=== PATIENT | female | born 1945 | race Caucasian/White ===

== ENCOUNTER → 2017-11-20 14:41 | Outpatient (CLI) | payer MEDICARE, OTHER, SELFPAY ==
[2017-11-20 16:05] LABS: Alanine Aminotransferase 34 IU/L (9-52); Albumin 4.2 g/dL (3.5-5.0); Albumin Globulin Ratio 1.5 (1.0-2.8); Alkaline Phosphatase 73 U/L (38-126); Aspartate Aminotransferase 41 IU/L (14-36); BUN Creatinine Ratio 27.1 (6-22); Bilirubin Total 0.7 mg/dL (0.2-1.3); Blood Urea Nitrogen 19 mg/dL (7-17); Calcium 9.5 mg/dL (8.4-10.2); Carbon Dioxide 32 mmol/L (22-32); Chloride 103 mmol/L (98-107); Cholesterol 225 mg/dL (140-199); Estimated Glomerular Filt Rate > 60.0 mL/min (>60); Globulin 2.8 g/dL (1.7-4.1); Glucose 102 mg/dL (80-110); HDL Cholesterol 69 mg/dL (40-60); HEMOLYSIS < 15 (0-50); LDL Cholesterol Calculated 103 mg/dL (<100); Potassium 4.8 mmol/L (3.4-5.1); Sodium 145 mmol/L (137-145); Triglycerides 266 mg/dL (35-150)
== END ==
PROVIDERS: Visit Provider Internal Medicine
DX: E78.5 Hyperlipidemia, unspecified (principal); Z00.00 Encounter for general adult medical examination without abnormal findings
CPT/HCPCS: 36415; 80053; 80061

== ENCOUNTER → 2017-12-08 13:41 | Outpatient (CLI) | payer MEDICARE, OTHER, SELFPAY | PROVIDERS: Family Provider Family Medicine; PCP Family Medicine; Visit Provider Internal Medicine | DX: M85.851 Other specified disorders of bone density and structure, right thigh (principal); Z78.0 Asymptomatic menopausal state; E28.39 Other primary ovarian failure; Z90.722 Acquired absence of ovaries, bilateral; Z82.62 Family history of osteoporosis | CPT/HCPCS: 77080 ==

== ENCOUNTER → 2018-01-06 09:12 | Outpatient (CLI) | payer MEDICARE, OTHER, SELFPAY ==
[2018-01-06 10:38] LABS: Cholesterol 244 mg/dL (140-199); HDL Cholesterol 69 mg/dL (40-60); LDL Cholesterol Calculated 160 mg/dL (<100); Triglycerides 75 mg/dL (35-150)
[2018-01-06 11:29] LABS: Thyroid Stimulating Hormone 5.83 uIU/mL (0.47-4.68)
== END ==
PROVIDERS: PCP Physician Assistant; Visit Provider Physician Assistant
DX: E78.5 Hyperlipidemia, unspecified (principal); Z83.438 Family history of other disorder of lipoprotein metabolism and other lipidemia
CPT/HCPCS: 36415; 80061; 84443

== ENCOUNTER → 2018-02-17 08:59 | Outpatient (CLI) | payer MEDICARE, OTHER, SELFPAY ==
[2018-02-17 10:16] LABS: Cholesterol 223 mg/dL (140-199); HDL Cholesterol 68 mg/dL (40-60); LDL Cholesterol Calculated 138 mg/dL (<100); Triglycerides 85 mg/dL (35-150)
[2018-02-17 10:40] LABS: Thyroid Stimulating Hormone 1.46 uIU/mL (0.47-4.68)
== END ==
PROVIDERS: PCP Physician Assistant; Visit Provider Physician Assistant
DX: E03.9 Hypothyroidism, unspecified (principal); E78.5 Hyperlipidemia, unspecified; Z51.81 Encounter for therapeutic drug level monitoring
CPT/HCPCS: 36415; 80061; 84443

== ENCOUNTER 2018-03-16 08:33 | Day surgery (SDC) | payer MEDICARE, OTHER, SELFPAY ==
[2018-03-16 08:55] VITALS: BP 144/88; PULSE 86; RESP 18; TEMP 36.6; O2SAT 96; BMI 22.6
[2018-03-16] MEDS: SODIUM CHLORIDE 0.9% 1,000 ML 200 ML IV (09:18)
--- NOTE | 2018-03-16 10:26 | PM.HP.1 ---
History of Present Illness Date Patient Seen: 03/16/18 Time Patient Seen: 10:26 Chief complaint: [id number] SCREENING COLONOSCOPY Narrative: Patient is a woman who had a sister from colon cancer. Her last exam was 5 years ago he. She is here for a colonoscopy for screening reasons in a high risk group. History of diverticulitis Patient History Medical History Anxiety (Chronic ~1959) Cataract (Chronic 2011) Colitis (Chronic 1966) IBS (irritable bowel syndrome) (Chronic 1969) Migraines (Chronic ~1989) Osteopenia (Chronic 2007) Rosacea (Chronic 2013) Acne (Resolved 1960) Chicken pox (Resolved 1949) Fractures (Resolved 2011) Measles (Resolved 1951) Mumps (Resolved 1950) Recurrent sinusitis (Resolved ~1979) Vertigo (Resolved 2011) Surgical History History of gynecologic surgery (Resolved 1972) History of oophorectomy (Resolved 1980) Status post cholecystectomy (Resolved 1999) Status post dilation and curettage (Resolved 1970) Status post hysterectomy (Resolved 1980) Family & Social History Family History: Reviewed 03/16/18 by Stanislaw Shaikh MD Social History: household members none Tobacco & Substance use: Smoking Status Former smoker alcohol intake current Meds Home Medications Medication Instructions Recorded Confirmed Type estradiol [Vivelle-Dot] 0.1 mg TOPICAL QWEEK #8 patch 07/22/11 03/16/18 History MULTIVITAMIN 1 cap PO Q DAY #0 10/16/11 03/16/18 History diazepam [Valium] 5 mg PO TIDP #30 tab 04/21/17 03/16/18 Rx AZO OTC See Label Instructions .ROUTE 12/30/17 03/16/18 History .COMPLEX Vitamin D3 2,000 IU See Label Instructions .ROUTE 12/30/17 03/16/18 History .COMPLEX levothyroxine 50 mcg tablet 50 mcg PO DAILY #90 tab 02/15/18 03/16/18 Rx Allergies Allergy/AdvReac Type Severity Reaction Status Date / Time CIPROFLOXACIN Allergy Mild BLEEDING Uncoded 03/16/18 09:14 ULCERATIONS ON SKIN CODEINE Allergy Mild ANXIETY Uncoded 03/16/18 09:14 EGGS Allergy Mild STOMACH Uncoded 03/16/18 09:14 PAIN AND DIARRHEA ERYTHROMYCIN Allergy Mild GI UPSET Uncoded 03/16/18 09:14 From CEFTIN Allergy Mild HEADACHE/MOUTH Uncoded 03/16/18 09:14 SORES From ZITHROMAX Allergy Mild DIARRHEA Uncoded 03/16/18 09:14 Prochlorperazine Allergy Mild Patient Uncoded 03/16/18 09:14 does not remember Promethazine Allergy Mild SPASMS Uncoded 03/16/18 09:14 LATEX AdvReac Mild LOCAL RASH Uncoded 03/16/18 09:14 Review of Systems Review of Systems All systems reviewed & are unremarkable except as noted in HPI and below Exam Vital Signs (past 8 hours): - 03/16/18 08:55 Temperature 97.8 F Pulse Rate 86 Respiratory Rate 18 Blood Pressure 144/88 H Pulse Oximetry 96 Oxygen Delivery Method Room Air Narrative Exam Narrative: Operative no apparent distress. Lungs are clear to auscultation. Heart regular rate and rhythm without murmur gallop. Abdomen is soft nontender without masses. No enlarged liver or spleen. Patient is alert and oriented x3. Assessment & Plan Plan: Assessment/Plan Narrative: Patient for screening colonoscopy. Last exam 5 years ago. Sister with colon cancer. I have discussed the procedure and the rationale with the patient including risks of bleeding, perforation which would necessitate a major operation, failure to find remove all lesions and the potential to tattoo. They appeared to understand and wished to proceed.
--- NOTE | 2018-03-16 10:30 | PM.PREOP ---
Pre-operative Note Interval Note History & Physical reviewed/Exam performed by Physician: Yes Changes to H&P: No ASA Class (for procedural sedation): I
[2018-03-16] MEDS: fentaNYL 250 MCG/5 ML INJ IV (10:46)
[2018-03-16] MEDS: MIDAZOLAM 5 MG/5 ML VIAL IV (10:47)
--- NOTE | 2018-03-16 10:59 | PM.OP.ENDO ---
Operative Date/Time/Diagnoses Date of procedure: 03/16/18 Time of procedure: 11:00 Pre-op diagnosis: Screening exam. Last exam 5 years ago. Sister with colon cancer. Post-op diagnosis: same (Sigmoid diverticulosis. Scarring on old hemorrhoids. No active hemorrhoidal disease.) Procedure & Clinicians Study performed: Colonoscopy Same procedure as scheduled: Yes Indications: Screening Surgeon: Stanislaw Shaikh Procedure Notes SCOAP/Timeout: Performed Procedure in detail: The patient was placed in the left lateral decubitus position and underwent IV sedation directed by the surgeon consisting of fentanyl and Versed. Digital exam was unremarkable. The scope was inserted and advanced through the rectum into the sigmoid, descending, transverse, and ascending colon. Sigmoid diverticulosis was noted. A stiffener was inserted and we made our way into the cecum. The cecum was reached identified by the ileocecal valve and the appendiceal opening. The scope was gradually brought out. No Polyps were found. The scope ultimately was retroflexed in the rectum. The appearance was remarkable for scarring on old hemorrhoids. There did not appear to be any active inflammation of this area. The scope was removed and the patient tolerated the procedure well. Prep was adequate. Scope withdrawal time: 7.75 min Sedation minutes: 21 Findings: diverticulosis (Sigmoid) Specimen(s): none sent Complications: none Recommendations: Colonscopy in 5 years Follow up: as needed Disposition: PACU
[2018-03-16 11:02] VITALS: BP 111/60; PULSE 64; RESP 15; TEMP 36.2; O2SAT 98
[2018-03-16 11:07] VITALS: BP 107/59; PULSE 60; RESP 13; O2SAT 98
[2018-03-16 11:12] VITALS: BP 110/63; PULSE 75; RESP 18; O2SAT 99
[2018-03-16 11:14] VITALS: BP 113/75; PULSE 70; RESP 16; O2SAT 99
[2018-03-16 11:58] VITALS: BP 110/72; PULSE 69; RESP 16; TEMP 36.1; O2SAT 100
== END 2018-03-16 11:55 | disposition home or self-care (01) ==
PROVIDERS: Family Provider Family Medicine; PCP Physician Assistant; Visit Provider Specialist
PROC: 0DJD8ZZ Inspection of Lower Intestinal Tract, Via Natural or Artificial Opening Endoscopic (ICD-10-PCS; CPT 45378; principal; 2018-03-16 09:45)
DX: Z12.11 Encounter for screening for malignant neoplasm of colon (principal); Z80.0 Family history of malignant neoplasm of digestive organs; F41.9 Anxiety disorder, unspecified; Z87.891 Personal history of nicotine dependence; K57.30 Diverticulosis of large intestine without perforation or abscess without bleeding
CPT/HCPCS: G0105; 99152; J2250; J3010

== ENCOUNTER → 2018-12-21 10:22 | Outpatient (CLI) | payer MEDICARE, OTHER, SELFPAY ==
[2018-12-21 12:05] LABS: Alanine Aminotransferase 23 IU/L (9-52); Albumin 4.3 g/dL (3.5-5.0); Albumin Globulin Ratio 1.3 (1.0-2.8); Alkaline Phosphatase 89 U/L (38-126); Aspartate Aminotransferase 35 IU/L (14-36); BUN Creatinine Ratio 22.9 (6-22); Blood Urea Nitrogen 16 mg/dL (7-17); Calcium 9.2 mg/dL (8.4-10.2); Carbon Dioxide 28 mmol/L (22-32); Chloride 102 mmol/L (98-107); Cholesterol 250 mg/dL (140-199); Estimated Glomerular Filt Rate > 60.0 mL/min (>60); Globulin 3.2 g/dL (1.7-4.1); Glucose 108 mg/dL (80-110); HDL Cholesterol 62 mg/dL (40-60); HEMOLYSIS < 15 (0-50); LDL Cholesterol Calculated 164 mg/dL (<100); Potassium 3.4 mmol/L (3.4-5.1); Sodium 138 mmol/L (137-145); Total Protein 7.5 g/dL (6.3-8.2); Triglycerides 121 mg/dL (35-150)
[2018-12-21 12:32] LABS: Thyroid Stimulating Hormone 1.49 uIU/mL (0.47-4.68)
== END ==
PROVIDERS: PCP Physician Assistant; Visit Provider Physician Assistant
DX: E03.9 Hypothyroidism, unspecified (principal); E78.5 Hyperlipidemia, unspecified
CPT/HCPCS: 36415; 80053; 80061; 84443

== ENCOUNTER → 2019-03-29 08:51 | Outpatient (CLI) | payer MEDICARE, SELFPAY ==
[2019-03-29 09:59] LABS: Cholesterol 220 mg/dL (140-199); HDL Cholesterol 64 mg/dL (40-60); LDL Cholesterol Calculated 141 mg/dL (<100); Triglycerides 73 mg/dL (35-150)
== END ==
PROVIDERS: PCP Student in an Organized Health Care Education/Training Program; Visit Provider Physician Assistant
DX: E78.2 Mixed hyperlipidemia (principal)
CPT/HCPCS: 36415; 80061

== ENCOUNTER → 2019-04-28 15:24 | Outpatient (CLI) | payer MEDICARE, SELFPAY | PROVIDERS: PCP Physician Assistant; Visit Provider Registered Nurse | DX: R35.0 Frequency of micturition (principal) | CPT/HCPCS: 87086 ==

== ENCOUNTER → 2019-09-12 15:34 | Outpatient (CLI) | payer MEDICARE, SELFPAY ==
--- NOTE | 2019-09-12 15:44 | DI.MG.S_ITS ---
BILATERAL DIGITAL SCREENING MAMMOGRAM 3D/2D WITH CAD: 09/12/2019 CLINICAL: Routine screening. Comparison is made to exams dated: 08/18/2018 mammogram, 06/19/2017 mammogram, and 05/26/2016 mammogram - [facility]. The tissue of both breasts is heterogeneously dense. This may lower the sensitivity of mammography. Current study was also evaluated with a Computer Aided Detection (CAD) system. No significant masses, calcifications, or other findings are seen in either breast. There has been no significant interval change. IMPRESSION: NEGATIVE There is no mammographic evidence of malignancy. A 1 year screening mammogram is recommended. This exam was interpreted at Station ID: [id number]. NOTE: For mammograms, a report in lay terms will be sent to the patient. Approximately 15% of breast malignancies will not be visualized mammographically. In the management of a palpable breast mass, a negative mammogram must not discourage biopsy of a clinically suspicious lesion. Electronically Signed By: Mumtaz mederos/morris:09/13/2019 08:37:26 letter sent: Normal Exam ACR BI-RADS Category 1: Negative [id number]
== END ==
PROVIDERS: PCP Student in an Organized Health Care Education/Training Program; Referring Provider Student in an Organized Health Care Education/Training Program; Visit Provider Student in an Organized Health Care Education/Training Program
DX: Z12.31 Encounter for screening mammogram for malignant neoplasm of breast (principal)
CPT/HCPCS: 77063; 77067

== ENCOUNTER → 2020-03-09 16:46 | Outpatient (CLI) | payer MEDICARE, SELFPAY ==
[2020-03-09 18:47] LABS: Vitamin D 25 Hydroxy (D3) 61.1 ng/mL (30.0-100.0)
== END ==
PROVIDERS: PCP Student in an Organized Health Care Education/Training Program; Referring Provider Student in an Organized Health Care Education/Training Program; Visit Provider Student in an Organized Health Care Education/Training Program
DX: E03.9 Hypothyroidism, unspecified (principal); M85.80 Other specified disorders of bone density and structure, unspecified site
CPT/HCPCS: 36415; 82306; 84443

== ENCOUNTER → 2020-04-10 13:09 | Outpatient (CLI) | payer MEDICARE, SELFPAY | PROVIDERS: PCP Student in an Organized Health Care Education/Training Program; Referring Provider Student in an Organized Health Care Education/Training Program; Visit Provider Student in an Organized Health Care Education/Training Program | DX: Z13.820 Encounter for screening for osteoporosis (principal); M81.0 Age-related osteoporosis without current pathological fracture; Z78.0 Asymptomatic menopausal state; E07.9 Disorder of thyroid, unspecified; Z90.722 Acquired absence of ovaries, bilateral; Z82.62 Family history of osteoporosis | CPT/HCPCS: 77080 ==

== ENCOUNTER 2020-08-03 13:41 | Emergency (ER) | payer MEDICARE, SELFPAY ==
[2020-08-03 13:47] VITALS: BP 165/79; PULSE 75; RESP 16; TEMP 36.5; O2SAT 97; BMI 21.7
--- NOTE | 2020-08-03 14:48 | ED.GENADULT ---
HPI - General Adult General Chief complaint: Dental/Oral Stated complaint: trouble swallowing Time Seen by Provider: 08/03/20 14:04 Source: patient Mode of arrival: Ambulatory Limitations: no limitations History of Present Illness HPI narrative: 75-year-old female here for evaluation of a couple days of trouble swallowing. She states that is also painful to swallow and also feels like things are getting stuck in her throat. She is having problems swallowing her Synthroid. No fevers. She is able to drink liquids without much difficulty. No dental pain. No ear pain. No chest pain. Has had issues with reflux in the past but not currently. She is not currently on any reflux medications. Related Data Home Medications Medication Instructions Recorded Confirmed MULTIVITAMIN 1 cap PO Q DAY #0 10/16/11 03/09/20 Vitamin D3 2,000 IU See Rx Instructions .ROUTE .COMPLEX 12/30/17 03/09/20 Previous Rx's Medication Instructions Recorded diazepam 2 mg tablet 2 mg PO DAILY #10 tab 08/03/19 levothyroxine 50 mcg tablet 50 mcg PO DAILY #90 tab 10/04/19 hydroxyzine HCl 25 mg tablet 25 mg PO BID PRN #30 tab 03/09/20 Allergies Allergy/AdvReac Type Severity Reaction Status Date / Time ciprofloxacin Allergy Severe bleeding Verified 03/09/20 16:03 ulceration on skin codeine Allergy Intermediate Anxiety Verified 03/09/20 16:03 azithromycin [From Zithromax] Allergy Mild Diarrhea Verified 03/09/20 16:03 cefuroxime [From Ceftin] Allergy Mild headaches Verified 03/09/20 16:03 mouth sores erythromycin base Allergy Mild GI upset Verified 03/09/20 16:03 latex Allergy Mild local rash Verified 03/09/20 16:03 prochlorperazine Allergy Mild pt does Verified 03/09/20 16:03 not remember promethazine Allergy Mild spasms Verified 03/09/20 16:03 EGGS Allergy Mild STOMACH Uncoded 03/09/20 16:03 PAIN AND DIARRHEA Review of Systems Constitutional Constitutional: Denies fever(s) and Denies headache(s) Eyes Eyes: Reports system reviewed and no additional complaints, except as documented ENT Ears, Nose, Mouth, and Throat: Denies headache(s), Denies sinus pain and Reports sore throat Cardiovascular Cardiovascular: Reports system reviewed and no additional complaints, except as documented Respiratory Respiratory: Reports system reviewed and no additional complaints, except as documented Gastrointestinal Gastrointestinal: Reports system reviewed and no additional complaints, except as documented, Denies nausea and Denies vomiting Genitourinary Genitourinary: Reports system reviewed and no additional complaints, except as documented Musculoskeletal Musculoskeletal: Reports system reviewed and no additional complaints, except as documented Integumentary/Breasts Skin/Breast: Reports system reviewed and no additional complaints, except as documented Neurologic Neurologic: Reports system reviewed and no additional complaints, except as documented and Denies headache(s) Hematologic/Lymphatic Hematologic/Lymphatic: Reports system reviewed and no additional complaints, except as documented Allergic/Immunologic Allergic/Immunologic: Reports system reviewed and no additional complaints, except as documented Patient History Medical History Acne (1960) Anxiety (~1959) Cataract (2011) Chicken pox (1949) Colitis (1966) Family history of malignant neoplasm of colon (08/29/13) Fractures (2011) IBS (irritable bowel syndrome) (1969) Measles (1951) Migraines (~1989) Mumps (1950) Osteopenia (2007) Recurrent sinusitis (~1979) Rosacea (2013) Vertigo (2011) Surgical History History of gynecologic surgery (1972) History of oophorectomy (1980) Status post cholecystectomy (1999) Status post dilation and curettage (1970) Status post hysterectomy (1980) Family History Father Thyroid disease Coronary artery disease Heart disease Hypertension Diabetes mellitus High cholesterol [place] (myocardial infarction) Mother Heart disease Hypertension Osteoporosis High cholesterol Sister Colorectal cancer Osteoporosis Diabetes mellitus Social History household members: none Smoking Status: Former smoker Tobacco: How many years used: 1 second hand exposure: No alcohol intake: current (one glass of wine or a little bit of whiskey with water 3 times a week maybe.) substance use type: does not use Smoking Status: Former smoker Exam Initial Vital Signs Initial Vital Signs: Vital Signs Temperature 97.7 F 08/03/20 13:47 Pulse Rate 75 08/03/20 13:47 Respiratory Rate 16 08/03/20 13:47 Blood Pressure 165/79 H 06/04/21 13:47 Pulse Oximetry 97 08/03/20 13:47 Const General: cooperative and comfortable Limitations: mental status not altered HENMT Head: normal to inspection and normocephalic Face and sinus: normal facial exam Mouth: oral mucosae normal Teeth and gingiva: dentition normal Throat: posterior oropharynx normal, uvula midline and no uvular edema Neck Lymphatic: No lymphadenopathy Resp Effort & Inspection: normal respiratory effort Auscultation: clear to auscultation bilaterally Cardio Rate: regular rate Rhythm: regular rhythm GI Inspection: non-distended Palpation: soft Skin Lesions: no lesions Rashes: no rashes Neuro General: patient alert, patient awake and patient oriented x3 Cognition: normal cognition Extrem General: capillary refill normal Psych Appearance: grossly normal and well kempt Course Orders Ordered: ED Orders 08/03/20 14:48 CT soft tissue neck w con Stat 08/03/20 15:03 Basic Metabolic Panel Stat Complete Blood Count AUTO DIFF Stat Vital Signs Vital signs: Vital Signs - 8 hr 08/03/20 13:47 08/03/20 15:32 08/03/20 15:33 Temperature 97.7 F Pulse Rate 75 65 63 Respiratory Rate 16 Blood Pressure 165/79 H 186/91 H Pulse Oximetry 97 99 99 08/03/20 15:54 Temperature Pulse Rate 67 Respiratory Rate Blood Pressure 177/82 H Pulse Oximetry 99 Medical Decision Making Lab Data Lab results reviewed: Yes I reviewed the patient's lab results. Result diagrams: 08/03/20 15:03 08/03/20 15:03 Labs: Lab Results 08/03/20 08/03/20 Range/Units 15:03 15:03 WBC 5.8 (4.5-11.0) X10^3/uL RBC 4.85 (4.0-5.2) X10^6/uL Hgb 15.2 (12.0-16.0) g/dL Hct 45.1 (36-46) % MCV 93.2 (80-100) fL MCH 31.4 (26-34) PG MCHC 33.7 (30-36) % RDW 13.4 (11.6-14.8) % Plt Count 261 (150-400) X10^3/uL Neut % (Auto) 70.3 (50-75) % Lymph % (Auto) 18.4 L (25-40) % [place] % (Auto) 7.8 (3-14) % Eos % (Auto) 2.8 (2-4) % Baso % (Auto) 0.7 (0-2) % Neut # (Auto) 4100 (3255-8344) /uL Lymph # (Auto) 1100 (9331-2195) /uL [place] # (Auto) 500 (0-900) /uL Eos # (Auto) 200 (0-450) /uL Baso # (Auto) 0 (0-100) /uL Sodium 139 (137-145) mmol/L Potassium 4.4 (3.4-5.1) mmol/L Chloride 104 (98-107) mmol/L Carbon Dioxide 28 (22-32) mmol/L BUN 14 (7-17) mg/dL Creatinine 0.57 (0.52-1.04) mg/dL Estimated GFR > 60.0 (>60) mL/min BUN/Creatinine Ratio 24.6 H (6-22) Glucose 107 (80-110) mg/dL Calcium 9.7 (8.4-10.2) mg/dL Imaging Data CT soft tissue of neck: Radiologist's Impression: [address] Scan ReportSigned Patient: Kathy Tanner CMR#: [id number]: 8Acct:[id number]/Sex: 75 / FDate of Service: 08/03/20Loc: EDAccession Number: [id number] Procedure: CT soft tissue neck w con Ordering Provider: Robert Blake D.O. PROCEDURE: CT SOFT TISSUE NECK W CON INDICATIONS: Uvular mass. TECHNIQUE: After the administration of intravenous contrast, 3.0 mm axial sections acquired from the sella to the aortic arch. Additional oblique axial 3.0 mm sections acquired through the pharynx. 3 mm thick coronal and sagittal reformats were generated. For radiation dose reduction, the following was used: automated exposure control. COMPARISON: None. FINDINGS: Image quality: Degraded by beam hardening artifact related to metallic dental hardware. Lymph nodes: No enlarged lymph nodes seen throughout the neck. Vessels: Visualized vasculature appears patent. Neck spaces: The oropharynx, nasopharynx, and pharynx demonstrate no mucosal lesions. The uvula is not well visualized due to beam hardening artifact related to metallic dental hardware and cannot be evaluated. The vocal cords, false vocal cords, pyriform sinuses, epiglottis, vallecula, and tongue base all appear normal. Extramucosal spaces appear unremarkable. Glands: The parotid and submandibular glands appear normal. Thyroid gland is normal. Miscellaneous: Visualized brain and orbits appear normal. Lung apices appear clear. Superficial soft tissues appear normal. Bones: No suspicious bony lesions. Visualized sinuses and mastoids appear unremarkable. IMPRESSION: 1. Image quality degraded by beam hardening artifact related to metallic dental hardware. 2. Uvula is poorly visualized due to artifact related to metallic dental hardware and cannot be evaluated. 3. No mucosal based masses in the well visualized portions of the neck. 4. No lymphadenopathy based on size criteria. Dictated by: Ashley Muñiz MD, PhD on 08/03/2020 at 16:17 Approved by: Ashley Muñiz MD, PhD on 08/03/2020 at 16:25 [facility] Narrative Medical decision making narrative: Patient is afebrile. She does not have any uvula edema noted on my exam. The CT scan of the neck shows no blockages or masses or narrowing. She is able to tolerate liquids. Informed her to stick to a liquid diet for the next couple days and advance her diet as tolerated starting with small bites of food. Informed her that if her symptoms have not improved by Thursday that she should contact her primary doctor for a follow-up to discuss the indication for an endoscopy. She was given strict return precautions. She expressed understanding and agreement. Discharge Plan Departure Patient Disposition: Home Clinical Impression: Dysphagia Instructions: DI for Oropharyngeal Dysphagia Activity Restrictions/Additional Instructions: I do recommend that you stick with a liquid diet for the next 24-48 hours and then after that increase your diet as tolerated making sure that your eating small bites of food. If your symptoms have not improved by Thursday recommend you contact your primary doctor to discuss the indications for referral to have a endoscopy. If your symptoms worsen please return to the emergency department for further evaluation. Prescriptions: No Action Vitamin D3 2,000 IU See Rx Instructions .ROUTE .COMPLEX RF: 0 MULTIVITAMIN 1 cap PO Q DAY Qty: 0 RF: 0 levothyroxine 50 mcg tablet 50 mcg PO DAILY Qty: 90 RF: 3 diazepam 2 mg tablet 2 mg PO DAILY Qty: 10 RF: 5 hydroxyzine HCl 25 mg tablet 25 mg PO BID PRN (Reason: anxiety) Qty: 30 RF: 0 Referrals: Jin Langley MD [Primary Care Provider] -
[2020-08-03 15:23] LABS: Add Manual Diff / Slide Review NO; Basophils Absolute Auto 0 /uL (0-100); Basophils Percent Auto 0.7 % (0-2); Eosinophils Absolute Auto 200 /uL (0-450); Eosinophils Percent Auto 2.8 % (2-4); Hematocrit 45.1 % (36-46); Hemoglobin 15.2 g/dL (12.0-16.0); Lymphocytes Absolute Auto 1100 /uL (1100-4500); Lymphocytes Percent Auto 18.4 % (25-40); Mean Corpuscular HGB Conc 33.7 % (30-36); Mean Corpuscular Hemoglobin 31.4 PG (26-34); Mean Corpuscular Volume 93.2 fL (80-100); Monocytes Absolute Auto 500 /uL (0-900); Monocytes Percent Auto 7.8 % (3-14); Neutrophils Absolute Auto 4100 /uL (1500-7000); Neutrophils Percent Auto 70.3 % (50-75); Platelet Count 261 X10^3/uL (150-400); Red Blood Cell Count 4.85 X10^6/uL (4.0-5.2); Red Cell Distribution Width 13.4 % (11.6-14.8); White Blood Cell Count 5.8 X10^3/uL (4.5-11.0)
[2020-08-03 15:32] VITALS: PULSE 65; O2SAT 99
[2020-08-03 15:32] LABS: BUN Creatinine Ratio 24.6 (6-22); Blood Urea Nitrogen 14 mg/dL (7-17); Calcium 9.7 mg/dL (8.4-10.2); Carbon Dioxide 28 mmol/L (22-32); Chloride 104 mmol/L (98-107); Estimated Glomerular Filt Rate > 60.0 mL/min (>60); Glucose 107 mg/dL (80-110); HEMOLYSIS 62 (0-50); Potassium 4.4 mmol/L (3.4-5.1); Sodium 139 mmol/L (137-145)
[2020-08-03 15:33] VITALS: BP 186/91; PULSE 63; O2SAT 99
[2020-08-03 15:54] VITALS: BP 177/82; PULSE 67; O2SAT 99
[2020-08-03 16:41] VITALS: BP 150/75; PULSE 63; RESP 16; O2SAT 97
== END 2020-08-03 16:50 | disposition home or self-care (01) ==
PROVIDERS: Emergency Provider Emergency Medicine; PCP Student in an Organized Health Care Education/Training Program
DX: R13.10 Dysphagia, unspecified (principal)
CPT/HCPCS: 36415; 70491; 80048; 85025; 99284; Q9967

== ENCOUNTER → 2020-10-11 11:09 | Outpatient (CLI) | payer MEDICARE, SELFPAY ==
[2020-10-11 11:19] LABS: RBC Urine None Seen (0-5/HPF)
[2020-10-11 12:07] LABS: Appearance Urine UA CLEAR; Bilirubin Urine UA NEGATIVE (NEGATIVE); Color Urine UA YELLOW; Glucose Urine UA NEGATIVE (Negative); Ketones Urine UA NEGATIVE (NEGATIVE); Leukocyte Esterase Urine UA TRACE (NEGATIVE); Nitrite Urine UA NEGATIVE (Negative); Occult Blood Urine UA NEGATIVE (Negative); Protein Urine UA NEGATIVE (Negative); Urobilinogen Urine UA 0.2 E.U./dL (0.2)
[2020-10-11 12:12] LABS: pH Urine UA 5.5 (4.5-8.0)
[2020-10-11 12:25] LABS: Bacteria Urine Occasional (0-1); Culture Indicated Urine Specimen Cultured; Mucus Urine 1+ (Negative); Squamous Epithelial Cell Urine 0-1 /HPF (0-5/HPF); WBC Urine 0-1/HPF (0-5/HPF)
== END ==
PROVIDERS: PCP Student in an Organized Health Care Education/Training Program; Referring Provider Student in an Organized Health Care Education/Training Program; Visit Provider Student in an Organized Health Care Education/Training Program
DX: R39.15 Urgency of urination (principal)
CPT/HCPCS: 81001; 87086

== ENCOUNTER 2020-11-28 13:00 | Outpatient (RCR) | payer MEDICARE, SELFPAY ==
--- NOTE | 2020-11-06 16:00 | PT.OIE ---
Current Diagnoses Urgency of urination (11/06/20) Past Medical History (Last Reviewed 08/03/20 @ 15:42 by Robert Blake DO) Acne (1960) Anxiety (~1960) Cataract (2011) Chicken pox (1949) Colitis (1966) Family history of malignant neoplasm of colon (08/29/13) Fractures (2011) History of gynecologic surgery (1972) History of oophorectomy (1980) IBS (irritable bowel syndrome) (1969) Measles (1951) Migraines (~1989) Mumps (1950) Osteopenia (2007) Recurrent sinusitis (~1979) Rosacea (2013) Vertigo (2011) Past Surgical History (Last Reviewed 03/16/18 @ 10:27 by Stanislaw Shaikh MD) History of gynecologic surgery (1972) History of oophorectomy (1980) Status post cholecystectomy (1999) Status post dilation and curettage (1970) Status post hysterectomy (1980) Visit Care Team Role Provider Type Jin Langley MD Attending Provider Physician Primary Care Provider Referring Provider Specialty: Internal Medicine Address: [address] [place] [address], [address], [facility] Email: [email or web address] Physical Therapy Initial Evaluation PT-OP-A Visit Information Start: 11/02/20 13:02 Freq: Status: Active Protocol: Document 11/06/20 14:30 AMB (Rec: 11/07/20 10:51 AMB [email or web address]) Out-Patient Physical Therapy Visit Information Visit Information Visit Type Initial Evaluation Visit Start Time 14:30 Visit Stop Time 15:15 Total Visit Minutes 45 Visit Number 1 PT-OP-B Current Condition Start: 11/02/20 13:02 Freq: Status: Active Protocol: Document 11/06/20 14:30 AMB (Rec: 11/06/20 15:47 AMB [id number]) Current Condition History of Current Condition Onset Date chronic Current Complaints Urge incontinence History of Current Condition Urgency worse over 15 years, 2 -3x/month has a large leak, multiple times per day small leaks, urgency. all vaginal, denies extended pushing. Endometriosis history, complete hysterectomy took estrogen for years afterward since they did an oophorectomy too. Denies chronic constipation, denies chronic cough. Treatment Goals Patient/Caregiver Goals Wear fewer pads reduce leaks Prior Functional Status Baseline Function- ADL's Independent Baseline Function- Mobility Independent Current Functional Impairments (Reported) Functional Limitations- ADL's Leaking with triggers, standing up from sitting, lifting Personal Factors Other Personal Factors That May Effect Anxiety, hypothyroid, back Therapy/Recovery pain PT-OP-C Subjective Start: 11/02/20 13:02 Freq: Status: Active Protocol: Document 11/06/20 14:30 AMB (Rec: 11/07/20 11:15 AMB [email or web address]) Patient Questionnaires Pelvic Pain and Urgency/Frequency Patient Symptom Scale Pelvic Pain Score 7 PT-OP-I Pelvic Floor Start: 11/02/20 13:02 Freq: Status: Active Protocol: Document 11/06/20 14:30 AMB (Rec: 11/07/20 11:15 AMB [email or web address]) Pelvic Floor Assessment Urine Pelvic Floor Surgery Yes: complete hysterectomy and oophorectomy Urinary Symptoms Urge Sensation Leakage Size Medium Leakage Cause Lifting,Urge Leaks Per Day 3 Voiding Frequency 1-2 hours Nocturia 2 Pads Used In 24 Hours 3 Urine Pad Type Maxi Pad Prolapse Cystocele Grade 1 Perineal Descent Resting Absent Bearing Absent Contraction Ability Voluntary Contraction Weak Voluntary Relaxation Moderate Manual Muscle Testing Left 3 Manual Muscle Testing Right 3 Manual Muscle Testing Anterior 2 Manual Muscle Testing Posterior 3 Muscle Endurance (Seconds) 5 Number of Quick Contractions In 10 4 Seconds PT-OP-T Assessment and Plan Start: 11/02/20 13:02 Freq: Status: Active Protocol: Document 11/06/20 14:30 AMB (Rec: 11/07/20 11:15 AMB [email or web address]) Physical Therapy Assessment Rehab Potential Rehabilitation Potential Good Evaluation Complexity Number of Personal Factors/Comorbidities 1-2 Number of Body Systems Impaired 1-2 Clinical Presentation at Evaluation Stable Impairments Impairments Functional Activities,Strength Goals Two Impairment Pelvic floor strength Short Term Goal (STG) Kathy will improve her pelvic floor strengh so that she can contract her pelvic floor for 10 seconds in standing. STG Duration 4 weeks Custodial Goal (LTG) Kathy will contract her pelvic floor while squatting to [employer] 10#. LTG Duration 8 weeks One Impairment Urge incontinence Short Term Goal (STG) Kathy will use urge reduction strategies so that she can stand up after sitting for an hour without leaking. STG Duration 4 weeks Custodial Goal (LTG) Kathy will reduce her nocturia to 1x/night or less. LTG Duration 8 weeks Assessment Summary Assessment Kathy attends physical therapy with progressively worsening urge incontinence and mild stress urinary incontinence. She was able to contract her pelvic floor with moderate strength, and was educated in urge reduction strategies. She will benefit from PT to progress her pelvic floor strength and further educate her in urgency/frequency reduction. Physical Therapy Plan Frequency and Duration Frequency of Treatment 1x/Week Duration of Treatment 8 weeks Plan of Care Start Date 11/06/20 Plan of Care End Date 01/01/21 Therapeutic Interventions Therapeutic Interventions Manual Therapy,Neuromuscular Re-education,Self-Care/Home Management,Therapeutic Activities,Therapeutic Exercises Modalities Biofeedback,Electric Stimulation Next Visit Focus/Plan Next Note Type Treatment Note Next Visit Plan sEMG
--- NOTE | 2020-11-06 16:00 | PT.OPPOC ---
Physical, Occupational & Speech Therapy At [facility] Current Diagnoses Urgency of urination (11/06/20) Visit Care Team Role Provider Type Jin Langley MD Attending Provider Physician Primary Care Provider Referring Provider Specialty: Internal Medicine Address: [address] [place] [address], [address], [address] Email: [email or web address] Plan Of Care PT-OP-T Assessment and Plan Start: 11/02/20 13:02 Freq: Status: Active Protocol: Document 11/06/20 14:30 AMB (Rec: 11/07/20 11:15 AMB [email or web address]) Physical Therapy Assessment Rehab Potential Rehabilitation Potential Good Evaluation Complexity Number of Personal Factors/Comorbidities 1-2 Number of Body Systems Impaired 1-2 Clinical Presentation at Evaluation Stable Impairments Impairments Functional Activities,Strength Goals Two Impairment Pelvic floor strength Short Term Goal (STG) Kathy will improve her pelvic floor strengh so that she can contract her pelvic floor for 10 seconds in standing. STG Duration 4 weeks Filter Tank Tender Goal (LTG) Kathy will contract her pelvic floor while squatting to picking tech 10#. LTG Duration 8 weeks One Impairment Urge incontinence Short Term Goal (STG) Kathy will use urge reduction strategies so that she can stand up after sitting for an hour without leaking. STG Duration 4 weeks Filter Tank Tender Goal (LTG) Kathy will reduce her nocturia to 1x/night or less. LTG Duration 8 weeks Assessment Summary Assessment Kathy attends physical therapy with progressively worsening urge incontinence and mild stress urinary incontinence. She was able to contract her pelvic floor with moderate strength, and was educated in urge reduction strategies. She will benefit from PT to progress her pelvic floor strength and further educate her in urgency/frequency reduction. Physical Therapy Plan Frequency and Duration Frequency of Treatment 1x/Week Duration of Treatment 8 weeks Plan of Care Start Date 11/06/20 Plan of Care End Date 01/01/21 Therapeutic Interventions Therapeutic Interventions Manual Therapy,Neuromuscular Re-education,Self-Care/Home Management,Therapeutic Activities,Therapeutic Exercises Modalities Biofeedback,Electric Stimulation Next Visit Focus/Plan Next Note Type Treatment Note Next Visit Plan sEMG Plan of Care Dates Plan of Care Start Date 11/06/20 Plan of Care End Date 01/01/21 Electronically Signed by: Belinda Elizondo, PT 11/07/20 2280 Please Sign and Return: I have reviewed this Plan of Care and certify that the skilled therapy services above are required to meet the patient?s needs. Physician Signature Date Printed Name and Credentials Clinical Instructor Signature Printed Name and Credentials
--- NOTE | 2020-11-13 14:26 | PT.OTN ---
Current Diagnoses Urgency of urination (11/13/20) Physical Therapy Treatment Note PT-OP-A Visit Information Start: 11/02/20 13:02 Freq: Status: Active Protocol: Document 11/13/20 13:45 AMB (Rec: 11/13/20 14:12 AMB [id number]) Out-Patient Physical Therapy Visit Information Visit Information Visit Type Treatment Note Visit Start Time 13:45 Visit Stop Time 14:30 Total Visit Minutes 45 Visit Number 2 PT-OP-B Current Condition Start: 11/02/20 13:02 Freq: Status: Active Protocol: Document 11/06/20 14:30 AMB (Rec: 11/06/20 15:47 AMB [id number]) Current Condition History of Current Condition Onset Date chronic Current Complaints Urge incontinence History of Current Condition Urgency worse over 15 years, 2 -3x/month has a large leak, multiple times per day small leaks, urgency. all vaginal, denies extended pushing. Endometriosis history, complete hysterectomy took estrogen for years afterward since they did an oophorectomy too. Denies chronic constipation, denies chronic cough. Treatment Goals Patient/Caregiver Goals Wear fewer pads reduce leaks Prior Functional Status Baseline Function- ADL's Independent Baseline Function- Mobility Independent Current Functional Impairments (Reported) Functional Limitations- ADL's Leaking with triggers, standing up from sitting, lifting Personal Factors Other Personal Factors That May Effect Anxiety, hypothyroid, back Therapy/Recovery pain PT-OP-C Subjective Start: 11/02/20 13:02 Freq: Status: Active Protocol: Document 11/13/20 13:45 AMB (Rec: 11/13/20 14:12 AMB [id number]) OP-PT Subjective Patient Comments Patient Comments Quick flicks are going well, long holds are challenging. Gush when getting out of bed this morning. Patient Reported Progress Improving PT-OP-I Pelvic Floor Start: 11/02/20 13:02 Freq: Status: Active Protocol: Document 11/06/20 14:30 AMB (Rec: 11/07/20 11:15 AMB [email or web address]) Pelvic Floor Assessment Urine Pelvic Floor Surgery Yes: complete hysterectomy and oophorectomy Urinary Symptoms Urge Sensation Leakage Size Medium Leakage Cause Lifting,Urge Leaks Per Day 3 Voiding Frequency 1-2 hours Nocturia 2 Pads Used In 24 Hours 3 Urine Pad Type Maxi Pad Prolapse Cystocele Grade 1 Perineal Descent Resting Absent Bearing Absent Contraction Ability Voluntary Contraction Weak Voluntary Relaxation Moderate Manual Muscle Testing Left 3 Manual Muscle Testing Right 3 Manual Muscle Testing Anterior 2 Manual Muscle Testing Posterior 3 Muscle Endurance (Seconds) 5 Number of Quick Contractions In 10 4 Seconds PT-OP-Q Treatments Start: 11/02/20 13:02 Freq: Status: Active Protocol: Document 11/13/20 13:45 AMB (Rec: 11/13/20 14:12 AMB [id number]) Therapeutic Exercises Sitting Exercises 2 Sitting Exercise Name quick flicks and saida gholds Comments seated 1 Sitting Exercise Name roll in roll out Side bilateral Equipment Used #2 band Comments latex free band Other Exercises 1 Other Exercise Name quadruped Comments quick flicks/ long holds withe UE flexion PT-OP-T Assessment and Plan Start: 11/02/20 13:02 Freq: Status: Active Protocol: Document 11/13/20 13:45 AMB (Rec: 11/13/20 14:12 AMB [id number]) Physical Therapy Assessment Assessment Summary Assessment Kathy did better with seated exercises because she could feel the perineum lift. Fatigued with roll in roll out . Quadruped is ok but long holds are more challening. Physical Therapy Plan Next Visit Focus/Plan Next Note Type Treatment Note Next Visit Plan Follow up on tolerance to roll in roll out.
--- NOTE | 2020-11-20 14:32 | PT.OTN ---
Current Diagnoses Urgency of urination (11/20/20) Physical Therapy Treatment Note PT-OP-A Visit Information Start: 11/02/20 13:02 Freq: Status: Active Protocol: Document 11/20/20 13:45 AMB (Rec: 11/20/20 14:21 AMB [id number]) Out-Patient Physical Therapy Visit Information Visit Information Visit Type Treatment Note Visit Start Time 13:45 Visit Stop Time 14:30 Total Visit Minutes 45 Visit Number 3 PT-OP-B Current Condition Start: 11/02/20 13:02 Freq: Status: Active Protocol: Document 11/06/20 14:30 AMB (Rec: 11/06/20 15:47 AMB [id number]) Current Condition History of Current Condition Onset Date chronic Current Complaints Urge incontinence History of Current Condition Urgency worse over 15 years, 2 -3x/month has a large leak, multiple times per day small leaks, urgency. all vaginal, denies extended pushing. Endometriosis history, complete hysterectomy took estrogen for years afterward since they did an oophorectomy too. Denies chronic constipation, denies chronic cough. Treatment Goals Patient/Caregiver Goals Wear fewer pads reduce leaks Prior Functional Status Baseline Function- ADL's Independent Baseline Function- Mobility Independent Current Functional Impairments (Reported) Functional Limitations- ADL's Leaking with triggers, standing up from sitting, lifting Personal Factors Other Personal Factors That May Effect Anxiety, hypothyroid, back Therapy/Recovery pain PT-OP-C Subjective Start: 11/02/20 13:02 Freq: Status: Active Protocol: Document 11/20/20 13:45 AMB (Rec: 11/20/20 14:21 AMB [id number]) OP-PT Subjective Patient Comments Patient Comments One leak while on the couch, then moved from sit to stand PT-OP-I Pelvic Floor Start: 11/02/20 13:02 Freq: Status: Active Protocol: Document 11/06/20 14:30 AMB (Rec: 11/07/20 11:15 AMB [email or web address]) Pelvic Floor Assessment Urine Pelvic Floor Surgery Yes: complete hysterectomy and oophorectomy Urinary Symptoms Urge Sensation Leakage Size Medium Leakage Cause Lifting,Urge Leaks Per Day 3 Voiding Frequency 1-2 hours Nocturia 2 Pads Used In 24 Hours 3 Urine Pad Type Maxi Pad Prolapse Cystocele Grade 1 Perineal Descent Resting Absent Bearing Absent Contraction Ability Voluntary Contraction Weak Voluntary Relaxation Moderate Manual Muscle Testing Left 3 Manual Muscle Testing Right 3 Manual Muscle Testing Anterior 2 Manual Muscle Testing Posterior 3 Muscle Endurance (Seconds) 5 Number of Quick Contractions In 10 4 Seconds PT-OP-Q Treatments Start: 11/02/20 13:02 Freq: Status: Active Protocol: Document 11/20/20 13:45 AMB (Rec: 11/20/20 14:21 AMB [id number]) Therapeutic Exercises Standing Exercises 1 Standing Exercise Name quick flicks and long holds Reps/Minutes 10 PT-OP-T Assessment and Plan Start: 11/02/20 13:02 Freq: Status: Active Protocol: Document 11/20/20 13:45 AMB (Rec: 11/20/20 14:21 AMB [id number]) Physical Therapy Assessment Goals Two Impairment Pelvic floor strength Short Term Goal (STG) Kathy will improve her pelvic floor strengh so that she can contract her pelvic floor for 10 seconds in standing. STG Duration 4 weeks Corporate Receptionist Goal (LTG) Kathy will contract her pelvic floor while squatting to forklift picker 10#. LTG Duration 8 weeks One Impairment Urge incontinence Short Term Goal (STG) Kathy will use urge reduction strategies so that she can stand up after sitting for an hour without leaking. STG Duration 4 weeks Corporate Receptionist Goal (LTG) Kathy will reduce her nocturia to 1x/night or less. LTG Duration 8 weeks Assessment Summary Assessment Encouraged Kathy in urge suppression with nocturia- still getting up 2x/night. Also encouraged in standing pelvic floor strengthening. Physical Therapy Plan Next Visit Focus/Plan Next Note Type Treatment Note Next Visit Plan Kathy has one more appointment scheduled, follow up on if further treatment needed
--- NOTE | 2020-11-28 15:33 | PT.OTN ---
Current Diagnoses Urgency of urination (11/28/20) Physical Therapy Treatment Note PT-OP-A Visit Information Start: 11/02/20 13:02 Freq: Status: Active Protocol: Document 11/28/20 13:00 AMB (Rec: 11/28/20 13:39 AMB [id number]) Out-Patient Physical Therapy Visit Information Visit Information Visit Type Discharge Summary Visit Start Time 13:00 Visit Stop Time 13:45 Total Visit Minutes 45 Visit Number 4 PT-OP-B Current Condition Start: 11/02/20 13:02 Freq: Status: Active Protocol: Document 11/06/20 14:30 AMB (Rec: 11/06/20 15:47 AMB [id number]) Current Condition History of Current Condition Onset Date chronic Current Complaints Urge incontinence History of Current Condition Urgency worse over 15 years, 2 -3x/month has a large leak, multiple times per day small leaks, urgency. all vaginal, denies extended pushing. Endometriosis history, complete hysterectomy took estrogen for years afterward since they did an oophorectomy too. Denies chronic constipation, denies chronic cough. Treatment Goals Patient/Caregiver Goals Wear fewer pads reduce leaks Prior Functional Status Baseline Function- ADL's Independent Baseline Function- Mobility Independent Current Functional Impairments (Reported) Functional Limitations- ADL's Leaking with triggers, standing up from sitting, lifting Personal Factors Other Personal Factors That May Effect Anxiety, hypothyroid, back Therapy/Recovery pain PT-OP-C Subjective Start: 11/02/20 13:02 Freq: Status: Active Protocol: Document 11/28/20 13:00 AMB (Rec: 11/28/20 15:21 AMB [email or web address]) OP-PT Subjective Patient Comments Patient Comments Kathy states she is consistently getting better, not wearing a large pad today. PT-OP-I Pelvic Floor Start: 11/02/20 13:02 Freq: Status: Active Protocol: Document 11/06/20 14:30 AMB (Rec: 11/07/20 11:15 AMB [email or web address]) Pelvic Floor Assessment Urine Pelvic Floor Surgery Yes: complete hysterectomy and oophorectomy Urinary Symptoms Urge Sensation Leakage Size Medium Leakage Cause Lifting,Urge Leaks Per Day 3 Voiding Frequency 1-2 hours Nocturia 2 Pads Used In 24 Hours 3 Urine Pad Type Maxi Pad Prolapse Cystocele Grade 1 Perineal Descent Resting Absent Bearing Absent Contraction Ability Voluntary Contraction Weak Voluntary Relaxation Moderate Manual Muscle Testing Left 3 Manual Muscle Testing Right 3 Manual Muscle Testing Anterior 2 Manual Muscle Testing Posterior 3 Muscle Endurance (Seconds) 5 Number of Quick Contractions In 10 4 Seconds PT-OP-Q Treatments Start: 11/02/20 13:02 Freq: Status: Active Protocol: Document 11/28/20 13:00 AMB (Rec: 11/28/20 13:39 AMB [id number]) Therapeutic Exercises Sitting Exercises 2 Sitting Exercise Name quick flicks and saida gholds Comments seated 1 Sitting Exercise Name roll in roll out Side bilateral Equipment Used #2 band Comments latex free band Standing Exercises 1 Standing Exercise Name quick flicks and long holds Reps/Minutes 10 Comments NBOS vs WBOS Other Exercises 1 Other Exercise Name breathing techniques PT-OP-T Assessment and Plan Start: 11/02/20 13:02 Freq: Status: Active Protocol: Document 11/28/20 13:00 AMB (Rec: 11/28/20 13:39 AMB [id number]) Physical Therapy Assessment Goals Two Impairment Pelvic floor strength Short Term Goal (STG) Kathy will improve her pelvic floor strengh so that she can contract her pelvic floor for 10 seconds in standing. STG Duration MET Architectural Manager Goal (LTG) Kathy will contract her pelvic floor while squatting to warp picker 10#. LTG Duration MET One Impairment Urge incontinence Short Term Goal (STG) Kathy will use urge reduction strategies so that she can stand up after sitting for an hour without leaking. STG Duration MET Fdc Goal (LTG) Kathy will reduce her nocturia to 1x/night or less. LTG Duration MET Assessment Summary Assessment Kathy is ready to be discharged she has met her goals, she has decreased her nocturia, is only wearing small pads when out of the house and is doing well with her pelvic floor strengthening exercises. She should do well to continue with her exercises independently. Physical Therapy Plan Discharge Physical Therapy Discharge Reasons Goals Met
== END 2020-12-18 08:02 | disposition home or self-care (01) ==
LOC: PHYS 13:00
PROVIDERS: PCP Student in an Organized Health Care Education/Training Program; Referring Provider Student in an Organized Health Care Education/Training Program; Visit Provider Student in an Organized Health Care Education/Training Program
DX: R39.15 Urgency of urination (principal)
CPT/HCPCS: 97110; 97161

== ENCOUNTER → 2021-01-15 15:12 | Outpatient (CLI) | payer MEDICARE, SELFPAY ==
--- NOTE | 2021-01-15 | DI.MG.S_ITS ---
BILATERAL DIGITAL SCREENING MAMMOGRAM 3D/2D WITH CAD: 01/15/2021 CLINICAL: Routine screening. Comparison is made to exams dated: 09/12/2019 mammogram - [facility], 08/18/2018 mammogram, and 06/19/2017 mammogram - [facility]. The tissue of both breasts is heterogeneously dense. This may lower the sensitivity of mammography. Current study was also evaluated with a Computer Aided Detection (CAD) system. There are benign calcifications in both breasts. There also are benign vascular calcifications in both breasts. No significant masses, calcifications, or other findings are seen in either breast. There has been no significant interval change. IMPRESSION: BENIGN There is no mammographic evidence of malignancy. A 1 year screening mammogram is recommended. This exam was interpreted at Station ID: [id number]. NOTE: For mammograms, a report in lay terms will be sent to the patient. Approximately 15% of breast malignancies will not be visualized mammographically. In the management of a palpable breast mass, a negative mammogram must not discourage biopsy of a clinically suspicious lesion. Electronically Signed By: Court alamo/morris:01/15/2021 15:51:27 letter sent: Normal Exam ACR BI-RADS Category 2: Benign Finding(s) 3342F
== END ==
PROVIDERS: PCP Student in an Organized Health Care Education/Training Program; Referring Provider Student in an Organized Health Care Education/Training Program; Visit Provider Student in an Organized Health Care Education/Training Program
DX: Z12.31 Encounter for screening mammogram for malignant neoplasm of breast (principal)
CPT/HCPCS: 77063; 77067

== ENCOUNTER → 2022-11-01 15:43 | Outpatient (CLI) | payer MEDICARE, SELFPAY ==
--- NOTE | 2022-11-01 15:49 | DI.RAD.S_ITS ---
PROCEDURE: XR FOOT RT MIN 3V INDICATIONS: Right plantar foot pain TECHNIQUE: 3 views of the foot were acquired. COMPARISON: [facility], CR, XR ANKLE RT MIN 3V, 11/01/2022, 15:58. [facility], CR, FOOT 3V RIGHT, 01/06/2007, 15:13. FINDINGS: Bones: No fractures or dislocations. No suspicious bony lesions. Degenerative changes are seen, which are worst involving the 1st ray and overall most prominent involving the 1st metatarsophalangeal joint. Toe alignment abnormalities are seen. A moderate plantar calcaneal spur is seen. Soft tissues: No tibiotalar joint effusion. Achilles tendon appears normal. IMPRESSION: Moderate plantar calcaneal spur. Focal 1st metatarsophalangeal joint degenerative change. Dictated by: Dimitri Corea M.D. on 11/01/2022 at 16:01 Approved by: Dimitri Corea M.D. on 11/01/2022 at 16:02
--- NOTE | 2022-11-01 15:49 | DI.RAD.S_ITS ---
PROCEDURE: XR ANKLE RT MIN 3V INDICATIONS: Right anterior ankle pain TECHNIQUE: 3 views of the ankle were acquired. COMPARISON: [facility], CR, XR FOOT RT MIN 3V, 11/01/2022, 15:58. [facility], CR, ANKLE 3 VIEWS LEFT, 05/21/2010, 14:51. FINDINGS: Bones: No fractures or dislocations. Ankle mortise is normally aligned. No suspicious bony lesions. The talar dome demonstrates no nidhi abnormality. There is a moderate plantar calcaneal spur. Soft tissues: No tibiotalar joint effusion. Achilles tendon appears normal. Atherosclerotic calcification is noted. IMPRESSION: Moderate plantar calcaneal spur. Dictated by: Dimitri Corea M.D. on 11/01/2022 at 16:02 Approved by: Dimitri Corea M.D. on 11/01/2022 at 16:02
== END ==
PROVIDERS: PCP Student in an Organized Health Care Education/Training Program; Referring Provider Physician Assistant; Visit Provider Physician Assistant
DX: M25.571 Pain in right ankle and joints of right foot (principal); M79.671 Pain in right foot; M77.31 Calcaneal spur, right foot; G89.29 Other chronic pain
CPT/HCPCS: 73610; 73630

== ENCOUNTER 2023-05-15 12:13 | Day surgery (SDC) | payer OTHER, SELFPAY ==
--- NOTE | 2023-05-15 | PATH_ITS ---
[facility] Accession Number: [id number] No. of containers..01 Tissue . 01 Material submitted: . colon - ASCENDING COLON POLYP . 01 Diagnosis: ASCENDING COLON POLYP: Sessile serrated adenoma. [facility] 05/19/20231706 Local . 01 Electronically signed: . Mumtaz Perez MD, Pathologist NPI- [id number] . 01 Gross description: . ASCENDING COLON POLYP: Received in formalin is 1 fragment(s) of paez, soft tissue measuring 0.4 x 0.3 x 0.2 cm submitted entirely in 1 cassette(s) /KEY 05/19/20231706 Local . 01 Pathologist provided ICD-10: D12.2 . 01 CPT . 518142 Specimen Comment: A courtesy copy of this report has been sent to [phone] Performed at: 01 [facility] [address] [place] [address], [place], [place] [id number] MD Mumtaz Perez MD Phone: [phone]
[2023-05-15] MEDS: LACTATED RINGERS 1,000 ML 42 ML IV (12:36)
[2023-05-15 12:45] VITALS: BP 159/83; PULSE 94; RESP 20; TEMP 36.4; O2SAT 98
--- NOTE | 2023-05-15 12:52 | PM.PREOP ---
Pre-operative Note Interval Note History & Physical reviewed/Exam performed by Physician: Yes Changes to H&P: No
[2023-05-15 13:21] VITALS: BP 106/54; PULSE 62; RESP 14; TEMP 36.4
--- NOTE | 2023-05-15 13:23 | P.OP.COLON_ITS ---
Operative Date/Time/Diagnoses Date of procedure: 05/15/23 Time of procedure: 13:24 Pre-op diagnosis: Positive Cologuard test. Family history of colon cancer Procedure & Clinicians Study performed: Diagnostic colonoscopy Same procedure as scheduled: Yes Indications: Positive Cologuard test Family history of colon cancer Colorectal screening Surgeon: Richard Urbina Procedure Notes Procedure in detail: The history and physical was performed/updated and the patient is ASA class is 2. The procedure was discussed in detail with the patient. Potential risks complications including infection, bleeding, missed diagnosis, perforation, need for surgery, and were explained. Their questions were answered and informed consent was obtained. Patient was brought to the procedure room and placed standard monitoring equipment. The patient's vital signs were monitored continuously throughout the entire procedure. Prior to starting time-out was performed. The patient was placed in the left lateral recumbent position. Procedural sedation was administered by anesthesia. Examination began with a thorough inspection of the perianal area there was no evidence of fissures, fistulae, external hemorrhoids or cutaneous malignancy. The colonoscopy scope was then placed into the anal canal and was advanced to the cecum, which was identified by the ileocecal valve, the appendiceal orifice and the confluence of the taenia. The scope was then slowly withdrawn examining colon thoroughly in all directions, irrigating it of any residual stool. The scope was retroflexed within the rectum The patient tolerated the procedure well. They will be discharged once criteria are met. The prep was of fair quality. The withdrawl time was 6 minutes. FINDINGS * Ascending colon-3 mm polyp removed with biopsy forceps * Sigmoid/descending colon moderate diverticulosis * Internal hemorrhoids Specimen(s): other (Ascending colon polyps) Impression: Colonic polyp x1 Post-procedure Plan for aftercare: Follow-up is dependent on pathology findings Disposition: same day surgery
[2023-05-15 13:26] VITALS: BP 99/62; PULSE 67; RESP 16; O2SAT 97
[2023-05-15 13:31] VITALS: BP 110/63; PULSE 63; PULSE 64; RESP 15; RESP 16; O2SAT 97; O2SAT 99
[2023-05-15 13:43] VITALS: BP 141/75; PULSE 63; RESP 15; TEMP 37; O2SAT 99
== END 2023-05-15 13:48 | disposition home or self-care (01) ==
PROVIDERS: PCP Physician Assistant; Referring Provider Surgery; Visit Provider Surgery
PROC: 0DJD8ZZ Inspection of Lower Intestinal Tract, Via Natural or Artificial Opening Endoscopic (ICD-10-PCS; CPT 45378; principal; 2023-05-15 13:15)
DX: Z12.11 Encounter for screening for malignant neoplasm of colon (principal); R19.5 Other fecal abnormalities; Z80.0 Family history of malignant neoplasm of digestive organs; K57.30 Diverticulosis of large intestine without perforation or abscess without bleeding; K64.8 Other hemorrhoids; D12.2 Benign neoplasm of ascending colon
CPT/HCPCS: 45380

== ENCOUNTER → 2023-10-12 12:13 | Outpatient (CLI) | payer OTHER, SELFPAY ==
--- NOTE | 2023-10-12 12:14 | DI.RAD.S_ITS ---
PROCEDURE: XR DEXA AXIAL SKELETON INDICATIONS: routine screening COMPARISON: [facility], PILO, XR DEXA AXIAL SKELETON, 04/10/2020, 13:31. FINDINGS: Lumbar Spine: Bone mineral density 0.709 g/cm2, T score -3.1, -3.0 Left Hip: Bone mineral density 0.624 g/cm2, T score -2.6 Left Femoral Neck: Bone mineral density 0.484 g/cm2, T score -3.3 Right Hip: Bone mineral density 0.600 g/cm2, T score -2.8 Right Femoral Neck: Bone mineral density 0.474 g/cm2, T score -3.4 Fracture Risk Calculation (when applicable): 10-year fracture risk of a major osteoporotic fracture 22% and of a hip fracture 10% (T score greater or equal to -1.0 to: NORMAL) (T score from -1.1 to -2.4: OSTEOPENIA) (T score less than or equal to -2.5: OSTEOPOROSIS) IMPRESSION: There is osteoporosis of the lumbar spine, left hip, left femoral neck, right hip and right femoral neck. Follow-up guidelines as follows: Osteoporosis: Consider a repeat DEXA and Vertebral Fracture Assessment (VFA) exam in 2 years or sooner if medically necessary, to reassess this patient's status. Osteopenia: Consider a repeat DEXA in 2-3 years to reassess this patient's status, or if there is a new clinical indication. Normal: Consider a repeat DEXA in 5 years or sooner, or if there is a new clinical indication. All treatment decisions require clinical judgment and consideration of individual patient factors, including patient preferences, comorbidities, previous drug use, risk factors not captured in the FRAX model (e.g., frailty, falls, vitamin D deficiency, increased bone turnover, interval significant decline in bone density ) and possible under- or over-estimation of fracture risk by FRAX. In addition, the NOF Guide recommends that FDA-approved medical therapies be considered in postmenopausal women and men age >= 50 years with a: * Hip or vertebral (clinical or morphometric) fracture * T-score of <=-2.5 at the spine or hip * Ten-year fracture probability by FRAX of >= 3% for hip fracture or >=20% for major osteoporotic fracture. People with diagnosed cases of osteoporosis or at high risk for fracture should have regular bone mineral density tests. For patients eligible for Medicare, routine testing is allowed once every 2 years. The testing frequency can be increased to one year for patients who have rapidly progressing disease, those who are receiving or discontinuing medical therapy to restore bone mass, or have additional risk factors. Dictated by: Deonte Mansfield M.D. on 10/12/2023 at 15:54 Approved by: Deonte Mansfield M.D. on 10/12/2023 at 15:58
== END ==
PROVIDERS: PCP Family Medicine; Referring Provider Family Medicine; Visit Provider Family Medicine
DX: M81.0 Age-related osteoporosis without current pathological fracture (principal)
CPT/HCPCS: 77080

== ENCOUNTER → 2023-11-18 09:35 | Outpatient (CLI) | payer OTHER, SELFPAY ==
[2023-11-18 10:42] LABS: Add Manual Diff / Slide Review NO; Basophils Absolute Auto 0 /uL (0-100); Basophils Percent Auto 0.6 % (0-2); Eosinophils Absolute Auto 200 /uL (0-450); Eosinophils Percent Auto 2.4 % (2-4); Hematocrit 45.2 % (36-46); Hemoglobin 15.6 g/dL (12.0-16.0); Lymphocytes Absolute Auto 1100 /uL (1100-4500); Lymphocytes Percent Auto 17.5 % (25-40); Mean Corpuscular HGB Conc 34.5 % (30-36); Mean Corpuscular Hemoglobin 32.1 PG (26-34); Mean Corpuscular Volume 92.9 fL (80-100); Monocytes Absolute Auto 500 /uL (0-900); Monocytes Percent Auto 7.8 % (3-14); Neutrophils Absolute Auto 4500 /uL (1500-7000); Neutrophils Percent Auto 71.7 % (50-75); Platelet Count 279 X10^3/uL (150-400); Red Blood Cell Count 4.86 X10^6/uL (4.0-5.2); Red Cell Distribution Width 13.2 % (11.6-14.8); White Blood Cell Count 6.3 X10^3/uL (4.5-11.0)
[2023-11-18 11:04] LABS: Alanine Aminotransferase 24 IU/L (<35); Albumin 4.2 g/dL (3.5-5.0); Albumin Globulin Ratio 1.6 (1.0-2.8); Alkaline Phosphatase 102 U/L (38-126); Aspartate Aminotransferase 36 IU/L (14-36); BUN Creatinine Ratio 20.3 (6-22); Bilirubin Total 0.9 mg/dL (0.2-1.3); Blood Urea Nitrogen 12 mg/dL (7-17); Calcium 9.5 mg/dL (8.4-10.2); Carbon Dioxide 28 mmol/L (22-32); Chloride 105 mmol/L (98-107); Cholesterol 239 mg/dL (140-199); Estimated Glomerular Filt Rate > 60 mL/min (>60); Globulin 2.7 g/dL (1.7-4.1); Glucose 101 mg/dL (80-110); HDL Cholesterol 65 mg/dL (40-60); HEMOLYSIS < 15 (0-50); LDL Cholesterol Calculated 154 mg/dL (<100); Potassium 3.8 mmol/L (3.4-5.1); Sodium 139 mmol/L (137-145); Total Protein 6.9 g/dL (6.3-8.2); Triglycerides 99 mg/dL (35-150)
[2023-11-18 11:19] LABS: Vitamin D 25 Hydroxy (D3) 40.4 ng/mL (30.0-100.0)
[2023-11-18 11:33] LABS: TSH w/ Reflex to FT4 1.16 uIU/mL (0.47-4.68)
== END ==
PROVIDERS: PCP Family Medicine; Referring Provider Family Medicine; Visit Provider Family Medicine
DX: E78.2 Mixed hyperlipidemia (principal); M81.0 Age-related osteoporosis without current pathological fracture; Z76.89 Persons encountering health services in other specified circumstances; K58.9 Irritable bowel syndrome, unspecified; E03.9 Hypothyroidism, unspecified
CPT/HCPCS: 36415; 80053; 80061; 82306; 84443; 85025

== ENCOUNTER → 2023-12-10 11:39 | Outpatient (CLI) | payer OTHER, SELFPAY ==
--- NOTE | 2023-12-10 11:40 | DI.MG.S_ITS ---
BILATERAL DIGITAL SCREENING MAMMOGRAM 3D/2D WITH CAD: 12/10/2023 CLINICAL: Routine screening. Comparison is made to exams dated: 08/29/2022 [facility], 01/15/2021 mammogram, and 09/12/2019 mammogram - [facility]. There are scattered areas of fibroglandular density (category b / 25%-50% glandular tissue). Current study was also evaluated with a Computer Aided Detection (CAD) system. There are benign vascular calcifications in both breasts. There is an asymmetry in the right breast middle depth lateral region seen on the craniocaudal view only. This is more prominent. No other significant masses, calcifications, or other findings are seen in either breast. IMPRESSION: INCOMPLETE: NEED ADDITIONAL IMAGING EVALUATION The asymmetry in the right breast is indeterminate. Additional views with possible ultrasound are recommended. Based on the Tyrer Cuzick model (a risk assessment model) the patient's lifetime risk is 2.0% and her 10 year risk is 0.0%. According to the ACR, ACS, and NCCN guidelines, an annual breast MRI exam along with mammogram is recommended if the patient's lifetime risk is 20% or greater. This exam was interpreted at Station ID: [id number]. NOTE: For mammograms, a report in lay terms will be sent to the patient. Approximately 15% of breast malignancies will not be visualized mammographically. In the management of a palpable breast mass, a negative mammogram must not discourage biopsy of a clinically suspicious lesion. Electronically Signed By: Chau Younger M.D. slc/:12/10/2023 15:42:27 letter sent: Additional Imaging Needed ACR BI-RADS Category 0: Incomplete: Need Additional Imaging Evaluation
== END ==
PROVIDERS: PCP Family Medicine; Referring Provider Family Medicine; Visit Provider Family Medicine
DX: Z12.31 Encounter for screening mammogram for malignant neoplasm of breast (principal)
CPT/HCPCS: 77063; 77067

== ENCOUNTER → 2023-12-18 11:40 | Outpatient (CLI) | payer OTHER, SELFPAY ==
--- NOTE | 2023-12-18 11:41 | DI.US.S_ITS ---
PROCEDURE: US BREAST RT LIMITED COMPARISON: None. INDICATIONS: ADD VIEWS RIGHT BREAST FINDINGS: IMPRESSION: Dictated by: Tasha Haines M.D.,Ph.D. on 12/18/2023 at 13:44 Approved by: Tasha Haines M.D.,Ph.D. on 12/18/2023 at 13:45
--- NOTE | 2023-12-18 11:41 | DI.MG.S_ITS ---
UNILATERAL RIGHT DIGITAL DIAGNOSTIC MAMMOGRAM 3D/2D WITH ADDITIONAL VIEWS: 12/18/2023 CLINICAL: Additional evaluation requested from prior study. Comparison is made to exams dated: 12/10/2023 mammogram - [facility], 08/29/2022 mammogram - [facility], and 01/15/2021 mammogram - [facility]. There are scattered areas of fibroglandular density (category b / 25%-50% glandular tissue). There is a 0.7 cm oval mass with a circumscribed margin in the right breast at 8 o'clock middle depth. This corresponds to finding seen on recent screening mammogram. No other significant masses or calcifications are seen in the breast. IMPRESSION: INCOMPLETE: NEED ADDITIONAL IMAGING EVALUATION The 0.7 cm oval mass in the right breast is indeterminate. An ultrasound is recommended for further evaluation and is scheduled to immediately follow this examination. Based on the Tyrer Cuzick model (a risk assessment model) the patient's lifetime risk is 2.0% and her 10 year risk is 0.0%. According to the ACR, ACS, and NCCN guidelines, an annual breast MRI exam along with mammogram is recommended if the patient's lifetime risk is 20% or greater. This exam was interpreted at Station ID: [id number]. NOTE: For mammograms, a report in lay terms will be sent to the patient. Approximately 15% of breast malignancies will not be visualized mammographically. In the management of a palpable breast mass, a negative mammogram must not discourage biopsy of a clinically suspicious lesion. Electronically Signed By: Tasha Hainse M.D., Ph.D. eb/:12/18/2023 15:05:49 Entry: - 12/21/2023 12:12:19 letter sent: Need Ultrasound ACR BI-RADS Category 0: Incomplete: Need Additional Imaging Evaluation
--- NOTE | 2023-12-18 13:22 | DI.US.S_ITS ---
Patient Name: DAVID MANCINI date: 1945 Sex: F Attending Physician: Kasandra Indications: Date: 12/18/2023 15:09 At the request of: ROBERTA SNYDER Procedure: US breast RT limited LIMITED ULTRASOUND OF RIGHT BREAST: 12/18/2023 CLINICAL: Patient returns today to evaluate an asymmetry in the right breast. Comparison is made to exams dated: 12/18/2023 mammogram, 12/10/2023 mammogram - [facility], 08/29/2022 mammogram - [facility], 01/15/2021 mammogram, 09/12/2019 mammogram - [facility], and 08/18/2018 mammogram - [facility]. Color flow and real-time ultrasound of the right breast 8 o'clock region were performed. Ortega scale images of the real-time examination were reviewed. There is a benign 0.6 cm simple cyst in the right breast at 8 o'clock posterior depth 3 cm from the nipple. This correlates with mammography findings. IMPRESSION: BENIGN Right breast simple cyst at 8 o'clock position is benign. No mammographic or sonographic evidence of malignancy. A 1 year screening mammogram is recommended. Findings and recommendations were conveyed to the patient during today's evaluation. This exam was interpreted at Station ID: [id number]. Electronically Signed By: Tasha Haines M.D., Ph.D. eb/:12/18/2023 15:09:00 Entry: - 12/21/2023 12:48:04 letter sent: Normal Exam ACR BI-RADS Category 2: Benign Continued Report - Page 2 of 2 Patient Name: DAVID MANCINI date: 1945 Sex: F Attending Physician: Kasandra Indications: Date: 12/18/2023 15:09 At the request of: ROBERTA SNYDER Procedure: US breast RT limited
== END ==
PROVIDERS: PCP Family Medicine; Referring Provider Family Medicine; Visit Provider Family Medicine
DX: R92.8 Other abnormal and inconclusive findings on diagnostic imaging of breast (principal); N60.01 Solitary cyst of right breast
CPT/HCPCS: 76642; 77065; G0279